=== PATIENT | male | born 1995 | race Caucasian/White ===

== ENCOUNTER 2022-06-08 05:59 | Day surgery (SDC) | payer BC ==
[2022-06-06 12:27] VITALS: BMI 24.5
[2022-06-08] MEDS ORDERED: PROPOFOL 40 ML ONE (07:12)
[2022-06-08] MEDS ORDERED: Lidocaine 2% MPF 10 ML AMP (For Epidural Use) ONE (07:12)
== END 2022-06-08 08:29 | disposition home or self-care (01) ==
LOC: CSHSDC 05:59
PROVIDERS: ATTEND Internal Medicine Gastroenterology
PROC: 0DJD8ZZ Inspection of Lower Intestinal Tract, Via Natural or Artificial Opening Endoscopic (ICD-10-PCS; principal; 2022-06-08)
DX: K92.1 Melena (principal); K64.8 Other hemorrhoids
CPT/HCPCS: J2704